=== PATIENT | female | born 1960 | race Caucasian/White ===

== ENCOUNTER 2022-01-10 16:04 | Emergency (ER) | payer OTHER ==
[2022-01-10] MEDS: HYDROmorphone 1 MG/ML Syringe SUBCUT ONE (16:24)
== END 2022-01-10 16:55 | disposition home or self-care (01) ==
LOC: CC.ED 16:04
DX: S62.101A Fracture of unspecified carpal bone, right wrist, initial encounter for closed fracture (principal); Z79.899 Other long term (current) drug therapy; W00.0XXA Fall on same level due to ice and snow, initial encounter
CPT/HCPCS: 73110-RT; 96372; 99283; 99283-25; J1170